=== PATIENT | female | born 1975 | race Two or more races ===

== ENCOUNTER 2017-11-25 10:52 | Emergency (ER) | payer OTHER ==
[~2017-11-25] VITALS: Ht 162.6 cm; Wt 97.5 kg
--- NOTE | 2017-11-25 11:25 | PHYS DOC ---
Past History Past Medical History: Hypothyroid Past Surgical History: Cholecystectomy, Tubal ligation Smoking: Non-smoker Alcohol Use: None Drug Use: None Adult General Chief Complaint Chief Complaint: ABDOMINAL PAIN HPI HPI Patient is a 42 yo female that presents to the ED complaining of left flank pain with radiation to abdomen. Patient states that the pain started approximately 15 min ago while she was at [facility]. She states that the pain is "sharp" and at its worst was 10/10 in severity. She states that the pain has improved and is now 4/10 in severity. She denies anything that makes the pain worse. Reports she has some slight associated nausea. Denies vomiting. Reports had a similar episodes a few weeks ago which resolved on its own. Denies trauma. Reports she drove up from [place] to drop her son off for college. Denies . Denies dysuria or hematuria. Review of Systems Review of Systems Constitutional: Denies fever or chills; reports generalized malaise Eyes: Denies change in visual acuity, redness, or eye pain [] HENT: Denies nasal congestion or sore throat [] Respiratory: Denies cough or shortness of breath [] Cardiovascular: Denies chest pain and palpitations [] GI: Endorses lower abdominal pain and nausea. Denies vomiting, bloody stools or diarrhea [] : Denies dysuria or hematuria [] Musculoskeletal: Denies back pain; reports right flank pain Neurologic: Denies headache, focal weakness or sensory changes [] Complete systems were reviewed and found to be within normal limits, except as documented in this note. Current Medications Current Medications Current Medications Medications (Trade) Dose Ordered [facility] Start Time Stop Time Status Last Admin Dose Admin Ketorolac Tromethamine (Toradol) 30 mg 1X ONCE 11/25/17 11:15 11/25/17 11:16 UNV Sodium Chloride 1,000 ml @ 1,000 mls/hr 1X ONCE 11/25/17 11:15 11/25/17 12:14 UNV Physical Exam Physical Exam Constitutional: Well developed, well nourished, no acute distress, non-toxic appearance. [] HENT: Normocephalic, atraumatic, bilateral external ears normal, oropharynx moist, no oral exudates, nose normal. [] Eyes: PERRL, EOMI [] Neck: Normal range of motion, no tenderness, supple, no stridor. [] Cardiovascular: Heart rate regular rhythm, no murmur [] Lungs & Thorax: Bilateral breath sounds clear to auscultation [] Abdomen: Left lower abdominal pain mild tenderness to palpation. Soft, no pulsatile masses. [] Skin: Warm, dry, no erythema, no rash. [] Back: No tenderness, Left CVA tenderness Extremities: No tenderness, ROM intact, no edema. [] Neurologic: Alert and oriented X 3, normal motor function, normal sensory function, no focal deficits noted. [] EKG EKG [] Radiology/Procedures Radiology/Procedures PROCEDURE: CT ABDOMEN PELVIS WO CONTRAST CT abdomen and pelvis without contrast TECHNIQUE: Helical multiplanar reconstructed noncontrast CT imaging of the abdomen and pelvis was acquired. HISTORY: Left-sided abdominal pain, left flank pain. Abdomen findings: Liver dome outside the [id number]. L5-S1 disc height loss and disc osteophyte may contribute to spinal canal and neural foraminal stenoses. 10 mm left ureteral pelvic junction obstructing calculus with mild hydronephrosis. Mild dilation of the common bile duct likely related to cholecystectomy. Hypodensity of the liver could be fatty. Right kidney, adrenal glands, pancreas, spleen unremarkable. No bowel obstruction or inflammatory change. Appendix is negative. No abdominal fluid. Pelvis findings: Uterus demonstrates a round globular morphology with a diameter of 6 cm. No bladder calculi. Pelvic phleboliths. Rectum and bones are unremarkable. IMPRESSION: 1. Mild left renal hydronephrosis due to a 10 mm obstructing ureteropelvic junction calculus. 2. Appendix is negative. 3. Rounded soft tissue mass at the uterine fundus may be a large fibroid. This could be further characterized by pelvic sonography. Course & Med Decision Making Course & Med Decision Making Pertinent Labs and Imaging studies reviewed. (See chart for details) Patient is a 42-year-old female that presents to the emergency department complaining of left flank and lower abdominal pain. While in the ED the pain subsided. Supportive measures provided and labs ordered. CT imaging was performed and showed mild hydronephrosis due to a 10 mm stone at the ureteropelvic junction. UA showed signs of infection. Creatinine also slightly elevated. Empiric antibiotics given. Concern that patient would require urgent urologic care. Patient therefore would require transfer for admission with urological consultation. Recommended to transfer to [facility]. Patient stated that she prefers to go home to [place] today and get further treatment there. Patient educated on risks of leaving against medical advice. Possible complications of serious disability and/or . Patient expressed understanding and was willing to sign the proper documentation demonstrating such understanding. Discussed findings and plan with patient and family, who acknowledge understanding and agreement. Dragon Disclaimer Dragon Disclaimer This electronic medical record was generated, in whole or in part, using a voice recognition dictation system. Departure Departure: Impression: Primary Impression: Hydronephrosis with renal and ureteral calculus obstruction Additional Impressions: UTI (urinary tract infection) Acute renal insufficiency Left against medical advice Disposition: AGAINST MEDICAL ADVICE Condition: GUARDED Referrals: NON,STAFF (PCP) Patient Instructions: Discharge Against Medical Advice, Kidney Stones, Easy-to- Read, Urinary Tract Infection Scripts Ondansetron Hcl (ZOFRAN) 4 Mg Tablet 1 TAB PO Q8HRS for NAUSEA, #14 TAB Prov: RELL TREJO DO 11/25/17 Hydrocodone Bit/Acetaminophen (NORCO 5-325 TABLET) 1 Each Tablet 0.5 TAB PO Q6HRS for PAIN, #10 TAB Prov: RELL TREJO DO 11/25/17 Cephalexin (KEFLEX) 500 Mg Capsule 1 CAP PO TID, #21 CAP Prov: RELL TREJO DO 11/25/17 Problem Qualifiers Additional Impressions: UTI (urinary tract infection) Urinary tract infection type: site unspecified Hematuria presence: with hematuria Qualified Codes: N39.0 - Urinary tract infection, site not specified ; R31.9 - Hematuria, unspecified RELL TREJO DO Nov 25, 2017 11:25
--- NOTE | 2017-11-25 11:44 | RAD ---
CT abdomen and pelvis without contrast TECHNIQUE: Helical multiplanar reconstructed noncontrast CT imaging of the abdomen and pelvis was acquired. HISTORY: Left-sided abdominal pain, left flank pain. Abdomen findings: Liver dome outside the [id number]. L5-S1 disc height loss and disc osteophyte may contribute to spinal canal and neural foraminal stenoses. 10 mm left ureteral pelvic junction obstructing calculus with mild hydronephrosis. Mild dilation of the common bile duct likely related to cholecystectomy. Hypodensity of the liver could be fatty. Right kidney, adrenal glands, pancreas, spleen unremarkable. No bowel obstruction or inflammatory change. Appendix is negative. No abdominal fluid. Pelvis findings: Uterus demonstrates a round globular morphology with a diameter of 6 cm. No bladder calculi. Pelvic phleboliths. Rectum and bones are unremarkable. IMPRESSION: 1. Mild left renal hydronephrosis due to a 10 mm obstructing ureteropelvic junction calculus. 2. Appendix is negative. 3. Rounded soft tissue mass at the uterine fundus may be a large fibroid. This could be further characterized by pelvic sonography. Exposure: One or more of the following individualized dose reduction techniques were utilized for this examination: 1. Automated exposure control 2. Adjustment of the mA and/or kV according to patient size 3. Use of iterative reconstruction technique Electronically signed by: Sloan Turner MD (11/25/2017 11:40 AM) [facility]
[2017-11-25 11:50] VITALS: BP 131/92
[2017-11-25 11:55] LABS: BASO # 0.1 x10^3/uL (0.0-0.2); BASO % 1 % (0-3); EOS # 0.2 x10^3/uL (0.0-0.7); EOS % 2 % (0-3); HEMATOCRIT 41.5 % (36.0-47.0); HEMOGLOBIN 14.5 g/dL (12.0-15.5); LYMPH # 1.8 x10^3/uL (1.0-4.8); LYMPH % 27 % (24-48); MEAN CORPUSCULAR HEMOGLOBIN 31 pg (25-35); MEAN CORPUSCULAR HGB CONC 35 g/dL (31-37); MEAN CORPUSCULAR VOLUME 88 fL (79-100); MONO # 0.5 x10^3/uL (0.0-1.1); MONO % 7 % (0-9); NEUT # 4.2 x10^3uL (1.8-7.7); NEUT % 63 % (31-73); PLATELET COUNT 198 x10^3/uL (140-400); WHITE BLOOD COUNT 6.7 x10^3/uL (4.0-11.0)
[2017-11-25] MEDS ORDERED: IV NORMAL SALINE 1,000ML 1,000 ML IV ONE (12:00)
[2017-11-25] MEDS ORDERED: KETOROLAC 30 MG/ML VIAL. IV ONE (12:00)
[2017-11-25 12:10] LABS: ALBUMIN 3.9 g/dL (3.4-5.0); ALBUMIN/GLOBULIN RATIO 1.1 (1.0-1.7); CALCIUM 9.3 mg/dL (8.5-10.1); CREATININE 1.1 mg/dL (0.6-1.0); GFR 54.7; POTASSIUM 3.7 mmol/L (3.5-5.1); TOTAL BILIRUBIN 0.6 mg/dL (0.2-1.0); TOTAL PROTEIN 7.6 g/dL (6.4-8.2)
[2017-11-25] MEDS ORDERED: MORPHINE SULFATE 4 MG/ML DISP.SYRIN. IV ONE (13:00)
[2017-11-25] MEDS ORDERED: METOCLOPRAMIDE HCL 10 MG/2 ML VIAL. IV ONE (13:00)
[2017-11-25 13:41] LABS: BILIRUBIN,URINE NEG (NEG); CLARITY,URINE TURBID; COLOR,URINE BROWN; GLUCOSE,URINE NEG (NEG)
[2017-11-25 13:43] LABS: BACTERIA,URINE MOD /HPF (0-FEW); NITRITE,URINE NEG (NEG); RBC,URINE >40 /HPF (0-2); UROBILINOGEN,URINE 1 mg/dL (0.2 mg/dL); WBC,URINE >40 /HPF (0-4)
[2017-11-25 13:44] LABS: SQUAMOUS EPITHELIAL CELL,UR MOD /LPF
[2017-11-25] MEDS ORDERED: cefTRIAXone IV Push 1 GM VIAL. IVP ONE (14:00)
[2017-11-25] MEDS ORDERED: HYDR-971 PO (14:15)
[2017-11-25] MEDS ORDERED: ONDA4TAB7 PO (14:15)
[2017-11-25] MEDS ORDERED: HYDROcodone/APAP 5/325MG 1 TAB TABLET PO ONE (14:15)
[2017-11-25] MEDS ORDERED: CEPH-264 PO (14:15)
== END 2017-11-25 14:27 | disposition left against medical advice (07) ==
LOC: ER 10:52
DX: N13.2 Hydronephrosis with renal and ureteral calculous obstruction (principal); N39.0 Urinary tract infection, site not specified; R31.9 Hematuria, unspecified; N28.9 Disorder of kidney and ureter, unspecified; E03.9 Hypothyroidism, unspecified
CPT/HCPCS: 36415; 74176; 80053; 81001; 83690; 85025; 87086; 96374; 96375; 99285; J0696; J1885; J2270; J2765; J3010; J7030